=== PATIENT | male | born 1930 | race Caucasian/White ===

== ENCOUNTER 2018-02-24 19:29 | Emergency (ER) ==
[2018-02-24 19:35] VITALS: TEMP 97.8; BMI 20.5
[2018-02-24] MEDS ORDERED: ZOFRAN 4 MG/2 ML IVP STA (19:47)
[2018-02-24] MEDS ORDERED: MORPHINE 2 MG/ML SYRINGE IVP STA (19:47)
[2018-02-24] MEDS ORDERED: SODIUM CHLORIDE 1,000 ML IV STA (19:48)
--- NOTE | 2018-02-24 22:05 | CT ---
EXAM: CT head without contrast. HISTORY: Ear pain. PROCEDURE: Contiguous axial CT images of the head without contrast with coronal and sagittal reforma ts. FINDINGS: There is diffuse cerebral atrophy. The ventricles and basal cisterns are normal in size an d configuration. No evidence of mass or midline shift. No intracranial hemorrhage or evidence of la rge vessel infarct. No extra-axial fluid collection. There are chronic small vessel ischemic change s in the white matter. There is minimal partial opacification of the right mastoid air cells. The lef t mastoid air cells and paranasal sinuses are well-aerated and normal in appearance. Impression: No intracranial hemorrhage or evidence of large vessel infarct. Chronic small vessel ischemic changes. Diffuse cerebral atrophy. Right mastoiditis.
--- NOTE | 2018-02-24 22:11 | CT ---
EXAM: CT scan chest abdomen pelvis without contrast HISTORY: Cough pain COMPARISON: CTA chest abdomen pelvis 08/13/2015 FINDINGS: Contiguous axial images obtained through the chest abdomen pelvis without contrast utilizi ng 3-mm collimation. Sagittal and coronal reconstructions were imaged and reviewed. The thoracic in let is unremarkable. The ascending aorta is ectatic measuring 3.5 cm. The heart is normal in size w ith coronary artery calcification. Calcified lymph node is seen in the subcarinal region. There is a small focus of scarring peripherally within the right lower lobe. There is calcified granuloma at t he left lung base. Stable scarring is noted in the right posterior gutter region Stable small cyst within the right lobe of the liver. Gallbladder is fluid filled without cholelithi asis. The pancreas spleen and adrenal glands have normal unenhanced CT appearance. There is a stable -appearing endovascular stent graft. There is a large simple cysts upper pole right kidney. Renovas cular calcifications noted bilaterally.. Prostate gland normal in size and contains calcification. The bladder is unremarkable. There is no free fluid or inflammatory changes. There is mild colonic fecal stasis.. Bone windows reveals no evidence of lytic or blastic lesions. IMPRESSION: Emphysematous changes are stable scarring right lung base. Ectatic ascending aorta. Stable-appearing endovascular stent graft within the abdominal aorta extending into the iliacs Stable cyst right lobe of liver.
[2018-02-24] MEDS ORDERED: ROCEPHIN 1 GM in SODIUM CHLORIDE 50 ML IV STA (22:24)
[2018-02-24] MEDS ORDERED: ROCEPHIN ONE (22:50)
[2018-02-24 23:07] VITALS: BP 152/84
--- NOTE | 2018-02-24 23:48 | ED.PDOC ---
General ED Provider: Dr. FELIPE JUAREZ-ER Chief Complaint: Abdominal Pain Stated Complaint: im hurting Time Seen by Physician: 19:40 Mode of Arrival: Wheelchair Information Source: Patient Exam Limitations: No limitations Primary Care Provider: JONATAN CARTER Nursing and Triage Documentation Reviewed and Agree: Yes Reviewed sepsis parameters & appropriate labs ordered?: Yes System Inflammatory Response Syndrome: Not Applicable Sepsis Protocol: For patient's 13 years and over: Temp is 96.8 and below OR 101 and greater Pulse >90 BPM Resp >20/minute Acutely Altered Mental Status Are patient's symptoms suggestive of a new infection, such as: -Pneumonia -Skin, Soft Tissue -Endocarditis -UTI -Bone, Joint Infection -Implantable Device -Acute Abdominal Infection -Wound Infection -Meningitis -Blood Stream Catheter Infection -Unknown GI Complaint Exam - Abdominal Pain Complaint/Exam Onset: Gradual Duration: several hourfs Symptoms Are: Still present Timing: Constant Initial Severity: Mild Current Severity: Mild Location of Pain: Diffuse Character: Reports: Dull, Aching Aggravating: Reports: None Associated Signs and Symptoms: Denies: Diaphoresis, Fever, Cough, Chest pain, Dizziness, Back pain, Constipation, Blood in stool, Dysuria, Urinary frequency, Decreased urine output, Decreased appetite, Discharge, Nausea, Vomiting, Diarrhea, Decreased activity Abdominal Findings: Present: None Differential Diagnoses: Constipation, Pancreatitis Quality Indicator For Non-Traumatic Chest Pain/Syncope: EKG Performed Review of Systems - Review Of Systems Constitutional: Reports: No symptoms Eyes: Reports: No symptoms Ears, Nose, Mouth, Throat: Reports: No symptoms Respiratory: Reports: No symptoms Cardiac: Reports: No symptoms GI: Reports: No symptoms : Reports: No symptoms Musculoskeletal: Reports: No symptoms Skin: Reports: No symptoms Neurological: Reports: No symptoms Endocrine: Reports: No symptoms Hematologic/Lymphatic: Reports: No symptoms All Other Systems: Reviewed and Negative Past Medical History - Past Medical History Previously Healthy: No Endocrine: Reports: Unknown Cardiovascular: Reports: Unknown Respiratory: Reports: Unknown Hematological: Reports: Unknown Gastrointestinal: Reports: Unknown Genitourinary: Reports: Unknown Neuro/Psych: Reports: Unknown Musculoskeletal: Reports: Unknown Cancer: Reports: Unknown - Surgical History General Surgical History: Reports: Unknown - Family History Family History: Reports: Unknown - Social History Smoking Status: Current every day smoker, Light tobacco smoker Hx Substance Use: No Alcohol Screening: None Physical Exam - Physical Exam Appearance: Well-appearing, No pain distress, Well-nourished Pain Distress: Mild Eyes: FABIO, EOMI, Conjunctiva clear ENT: Ears normal, Nose normal, Oropharynx normal Neck: Supple Respiratory: Airway patent Cardiovascular: RRR GI/: Soft, Nontender, No masses, Bowel sounds normal, No Organomegaly Musculoskeletal: Normal strength, ROM intact, No edema, No calf tenderness Skin: Warm, Dry, Normal color Neurological: Sensation intact, Motor intact, Reflexes intact, Cranial nerves intact, Alert, Oriented Psychiatric: Affect appropriate, Mood appropriate Interpretation - Radiology Interpretation Radiology Interpretation By: Radiologist Radiology Results: Negative Exam Interpreted: CT Scan - EKG Interpretation Time of EKG #1: 23:48 Rate: Normal Rhythm: Sinus Ectopy: None Cutler: NL ST Segment: Normal Interpretation: nsr Critical Care Note - Critical Care Note Total Time (mins): 0 Course - Course Hematology/Chemistry: 02/24/18 19:50 02/24/18 19:50 Orders, Labs, Meds: Lab Review 02/24/18 02/24/18 02/24/18 19:50 19:50 22:30 WBC 11.64 H RBC 4.55 L Hgb 12.5 L Hct 38.9 L MCV 85.5 MCH 27.5 MCHC 32.1 RDW Coeff of Olga 16.1 H Plt Count 295 Immature Gran % (Auto) 0.3 Neut % (Auto) 57.8 Lymph % (Auto) 9.3 L Guthrie % (Auto) 8.2 Eos % (Auto) 23.6 H Baso % (Auto) 0.8 Immature Gran # (Auto) 0.0 Neut # (Auto) 6.7 Lymph # (Auto) 1.1 Guthrie # (Auto) 1.0 Eos # (Auto) 2.8 H Baso # (Auto) 0.1 Sodium 139 Potassium 3.5 Chloride 106 Carbon Dioxide 21 L Anion Gap 15.5 BUN 23 H Creatinine 1.39 H Estimated GFR (MDRD) 49.00 BUN/Creatinine Ratio 16.54 Glucose 144 H Calcium 9.4 Total Bilirubin 0.5 AST 12 L ALT 9 L Alkaline Phosphatase 75 Total Creatine Kinase 39 Troponin I 0.0110 Total Protein 7.6 Albumin 3.6 Globulin 4.0 Albumin/Globulin Ratio 0.90 Amylase 38 Lipase 35 Urine Color Yellow Urine Clarity Clear Urine pH 5.0 Ur Specific [place] >=1.030 Urine Protein Negative Urine Glucose (UA) Negative Urine Ketones Trace Urine Blood Negative Urine Nitrite Negative Urine Bilirubin Negative Urine Urobilinogen 0.2 Ur Leukocyte Esterase Negative Orders Category Date Time Status EKG-(ED ONLY) Stat CARDIO 02/24/18 19:46 Completed NPO REMINDER: IMAGING ONCE CARE 02/24/18 19:50 Active IV [ED IV/MEDIPORT/POWERPORT] .ONCE EMERGENCY 02/24/18 19:46 Active AMYLASE Stat LAB 02/24/18 19:50 Completed BLOOD CULTURE (ED ONLY) Stat LAB 02/24/18 20:05 Received CBC W/ AUTO DIFF Stat LAB 02/24/18 19:50 Completed COMPREHENSIVE METABOLIC PANEL Stat LAB 02/24/18 19:50 Completed CREATINE KINASE Stat LAB 02/24/18 19:50 Completed LIPASE Stat LAB 02/24/18 19:50 Completed TROPONIN I Stat LAB 02/24/18 19:50 Completed URINALYSIS C & S IF INDICATED Stat LAB 02/24/18 22:30 Completed 0.9 % Sodium Chloride [Saline Flush] MEDS 02/24/18 19:46 Ordered 1 syr IVF PRN PRN Ceftriaxone Sodium [Rocephin] MEDS 02/24/18 22:50 Discontinued 1 gm .ROUTE .STK-MED ONE Ceftriaxone Sodium [Rocephin] 1 gm MEDS 02/24/18 22:24 Discontinued 0.9 % Sodium Chloride [Sodium Chloride] 50 ml IV ONCE Morphine Sulfate [Morphine 2 mg/ml Syringe] MEDS 02/24/18 19:47 Discontinued 2 mg IVP ONCE STA Ondansetron HCl/Pf [Zofran 4 mg/2 ml] MEDS 02/24/18 19:47 Discontinued 4 mg IVP ONCE STA Sodium Chloride 0.9% [Sodium Chloride] 1,000 ml MEDS 02/24/18 19:48 Active IV 100 mls/hr CT ABDOMEN/PELVIS WO CONTRAST Stat RADS 02/24/18 20:[address] CHEST W/O CONTRAST Stat RADS 02/24/18 19:[address] HEAD W/O CONTRAST Stat RADS 02/24/18 20:46 Completed Medications Generic Name Dose Route Start Last Admin Trade Name Freq PRN Reason Stop Dose Admin Sodium Chloride 1,000 mls @ 100 mls/hr 02/24/18 19:48 05/15/18 20:08 Sodium Chloride IV 02/25/18 05:47 100 mls/hr .Q10H STA Administration Sodium Chloride 1 syr 02/24/18 19:46 02/24/18 20:08 Saline Flush IVF 1 syr PRN PRN Administration To flush IV Discontinued Medications Generic Name Dose Route Start Last Admin Trade Name Freq PRN Reason Stop Dose Admin Ceftriaxone Sodium 1 gm/ 50 mls @ 75 mls/hr 02/24/18 22:24 02/24/18 22:55 Sodium Chloride IV 02/24/18 23:03 75 mls/hr ONCE STA Administration Morphine Sulfate 2 mg 02/24/18 19:47 02/24/18 20:08 Morphine 2 Mg/Ml Syringe IVP 02/24/18 19:48 2 mg ONCE STA Administration Ondansetron HCl 4 mg 02/24/18 19:47 02/24/18 20:08 Zofran 4 Mg/2 Ml IVP 02/24/18 19:48 4 mg ONCE STA Administration Vital Signs: Temp Pulse Resp BP Pulse Ox 02/24/18 23:00 79 24 152/84 H 98 02/24/18 20:43 78 18 168/98 H 100 02/24/18 20:06 77 30 H 174/89 H 100 02/24/18 19:32 97.8 F 87 24 157/96 H 87 L Departure - Departure Time of Disposition: 23:48 Disposition: TSF SHORT-TRM HOSP Discharge Problem: Abdominal pain Instructions: Acute Abdominal Pain (ED) Condition: Good Pt referred to PMD for follow-up: Yes IPMP verified?: No Home Medications: Ambulatory Orders Hydrocodone Bit/Acetaminophen [[place] 10-325] 2 each PO Q6HR PRN 02/24/18 Hydroxyzine HCl [Atarax] 02/24/18 Lorazepam 02/24/18 Olanzapine [Zyprexa] 02/24/18 Ranitidine HCl 150 mg PO BID 02/24/18 Ropinirole HCl [Requip] 02/24/18 Tamsulosin HCl [Flomax] 0.4 mg PO DAILY 02/24/18 Transfer Form Completed: Yes Disposition Discussed With: Patient
== END 2018-02-25 00:55 | disposition short-term general hospital (02) ==
LOC: ED 19:29
DX: R10.9 Unspecified abdominal pain (principal); Z79.899 Other long term (current) drug therapy; F17.210 Nicotine dependence, cigarettes, uncomplicated
CPT/HCPCS: 36415; 80053; 81001; 82150; 82550; 83690; 84484; 85025; 87040; 93005; 93010; 96361; 96365; 96375; 99285

== ENCOUNTER 2018-02-25 00:55 | Outpatient (CLI) | payer OTHER ==
[2018-02-24 19:35] VITALS: BMI 20.5
== END 2018-02-25 01:10 | disposition short-term general hospital (02) ==
LOC: AMBL 00:55
PROVIDERS: ATTEND Family Medicine
DX: R10.9 Unspecified abdominal pain (principal)